=== PATIENT | female | born 1995 | race Caucasian/White ===

== ENCOUNTER 2018-12-09 13:57 | Emergency (ER) | payer MEDICAID ==
[~2018-12-09] VITALS: Ht 157.5 cm; Wt 64.4 kg
[2018-12-09 14:38] LABS: Urine Bacteria FEW /hpf (None Seen); Urine Blood TRACE /uL (Negative); Urine Specific Gravity 1.003 (1.001-1.035); Urine WBC 52 /hpf (0 - 5)
[2018-12-09] MEDS ORDERED: FOLIC ACID 1 MG TAB PO ONE (14:45)
[2018-12-09 14:46] LABS: Basophils # (auto) 0 uL; Basophils % (auto) 0.2 % (0.0-2.0); Eosinophils # (auto) 0 uL; Eosinophils % (auto) 0.1 % (0.0-7.0); Hematocrit 36.7 % (36.0-46.0); Hemoglobin 12.5 g/dL (12.2-16.2); Lymphocytes # (auto) 1.7 uL; Lymphocytes % (auto) 13.1 % (10.0-50.0); Mean Corpuscular Hemoglobin 31.6 pg (28.0-32.0); Mean Corpuscular Volume 92.9 fL (80.0-100.0); Monocytes # (auto) 0.8 uL; Monocytes % (auto) 6.3 % (0.0-12.0); Neutrophils # (auto) 10.2 uL; Neutrophils % (auto) 80.3 % (37.0-80.0); Platelet Count (auto) 323 10^3/uL (140-450); Red Blood Cells 3.95 10^6/uL (4.0-5.20); White Blood Cell 12.7 10^3/uL (4.4-10.8)
[2018-12-09 14:53] LABS: Albumin 3.4 g/dL (3.4-5.0); BUN/Creatinine Ratio 20.5; Calcium 9.4 mg/dL (8.5-10.1); Potassium 3.5 mmol/L (3.5-5.1); Total Protein 7.7 g/dL (6.4-8.2)
[2018-12-09 14:57] LABS: Bilirubin, Total 0.3 mg/dL (0.2-1.0)
[2018-12-09 15:03] VITALS: BP 126/79
== END 2018-12-09 16:21 | disposition home or self-care (01) ==
LOC: ER 13:57
DX: O23.42 Unspecified infection of urinary tract in pregnancy, second trimester (principal); Z3A.18 18 weeks gestation of pregnancy
CPT/HCPCS: 36415; 76805; 80053; 81001; 84702; 85025